=== PATIENT | male | born 1980 | race Caucasian/White ===

== ENCOUNTER 2024-09-09 13:44 | Emergency (ER) | payer OTHER ==
[~2024-09-09] VITALS: Ht 177.8 cm; Wt 79.4 kg
[2024-09-09 14:18] VITALS: BP 162/106; TEMP 98.3; O2SAT 98
== END 2024-09-09 17:27 | disposition left against medical advice (07) ==
LOC: ER 13:50
DX: K46.9 Unspecified abdominal hernia without obstruction or gangrene (principal); Z53.21 Procedure and treatment not carried out due to patient leaving prior to being seen by health care provider